=== PATIENT | male | born 1990 | race African-American/Black ===

== ENCOUNTER 2023-08-13 18:09 | Inpatient (IN) | payer BC ==
[2023-08-13 21:06] VITALS: BMI 26.6
[2023-08-13] MEDS ORDERED: BENZOCAINE/MENTHOL (CHLORASEPTIC ) LOZENGE MM PRN (23:47)
[2023-08-13] MEDS ORDERED: P-EPHED 60MG/TRIPROLIDI 2.5MG TABLET PO PRN (23:47)
[2023-08-13] MEDS ORDERED: IBUPROFEN 400 MG TABLET (FP) PO PRN (23:47)
[2023-08-13] MEDS ORDERED: LOPERAMIDE HCL 2 MG CAPSULE PO PRN (23:47)
[2023-08-13] MEDS ORDERED: BENZONATATE 200 MG CAPSULE PO PRN (23:47)
[2023-08-13] MEDS ORDERED: IBUPROFEN 600 MG TABLET (FP) PO PRN (23:47)
[2023-08-13] MEDS ORDERED: MAGNESIUM HYDROX 2400MG/30ML ORAL SUSPENSION 30 ML CUP PO PRN (23:47)
[2023-08-13] MEDS ORDERED: COLLOIDAL OATMEAL 1 BAR EACH TP PRN (23:47)
[2023-08-13] MEDS ORDERED: POLYETHYLENE GLYCOL (HEALTHYLAX) 3350 17 GM PACKET PO PRN (23:47)
[2023-08-13] MEDS ORDERED: guaiFENesin 600 MG TABLET.ER (FP) PO PRN (23:47)
[2023-08-14] MEDS: MELATONIN 5 MG TABLETS PO SCH ×2 (01:20→21:13)
[2023-08-14] MEDS: PRENATAL VITAMINS W/ FOLIC ACID TABLET (FP) PO SCH (10:00)
[2023-08-14] MEDS ORDERED: TUBERCULIN PPD 5 TU/0.1ML SYRINGE (IN PATIENT USE ONLY) ID ONE (12:00)
[2023-08-14 12:06] LABS: CHLORIDE 109 mmol/L (98-107); SODIUM 139 mmol/L (136-145)
[2023-08-14 12:09] LABS: HEMATOCRIT 45.4 % (35.4-49); HEMOGLOBIN 14.5 GM/dL (11.7-16.9); MCH 28.5 pg (25.7-33.7); MEAN CELL VOLUME 89.2 fl (80-96); PLATELET COUNT 235 10^3/uL (134-434); RBC 5.09 M/mm3 (4.00-5.60); RDW 14.5 % (11.9-15.9); WHITE BLOOD COUNT 7.6 K/mm3 (4.0-10.0)
[2023-08-14 12:10] LABS: ALBUMIN 3.7 g/dl (3.4-5.0); ANION GAP 6 mmol/L (4-13); BLOOD UREA NITROGEN 12.5 mg/dL (7-18); CO2 25 mmol/L (21-32); GLUCOSE,RANDOM 110 mg/dL (74-106)
[2023-08-14 12:13] LABS: SGOT/AST 13 U/L (15-37); SGPT/ALT 16 U/L (13-61)
[2023-08-14 12:14] LABS: TOT PROT 6.8 g/dl (6.4-8.2)
[2023-08-14 12:16] LABS: ALK PHOS 80 U/L (45-117)
[2023-08-14 12:16] LABS: PH,URINE 5.5 (5.0-8.0); URINE APPEARANCE CLEAR; URINE BILIRUBIN NEGATIVE (NEGATIVE); URINE COLOR YELLOW; URINE GLUCOSE (UA) NEGATIVE (NEGATIVE); URINE KETONE TRACE (NEGATIVE); URINE LEUK ESTERASE NEGATIVE (NEGATIVE); URINE NITRITE NEGATIVE (NEGATIVE); URINE PROTEIN TRACE (NEGATIVE); URINE UROBILINOGEN 0.2 mg/dL (0.2-1.0)
[2023-08-14] MEDS: MAG HYDROX/AL HYDROX/SIMETH 30 ML UNIT-DOSE CUP PO PRN (14:54)
[2023-08-14] MEDS: THIAMINE HCL 100 MG TABLET (FP) PO SCH (21:13)
[2023-08-15] MEDS: MAG HYDROX/AL HYDROX/SIMETH 30 ML UNIT-DOSE CUP PO PRN (06:21)
[2023-08-15] MEDS: PRENATAL VITAMINS W/ FOLIC ACID TABLET (FP) PO SCH (09:28)
[2023-08-15] MEDS: THIAMINE HCL 100 MG TABLET (FP) PO SCH (21:19)
[2023-08-15] MEDS: MELATONIN 5 MG TABLETS PO SCH (21:19)
[2023-08-16] MEDS: PRENATAL VITAMINS W/ FOLIC ACID TABLET (FP) PO SCH (09:34)
[2023-08-16 11:52] LABS: SYPHILIS W/ RPR CONF NON-REACTIVE (NONREACTIVE)
[2023-08-16] MEDS: THIAMINE HCL 100 MG TABLET (FP) PO SCH (21:19)
[2023-08-16] MEDS: MELATONIN 5 MG TABLETS PO SCH (21:19)
[2023-08-17] MEDS: ACETAMINOPHEN 325 MG TABLET (FP) PO PRN ×2 (02:00→23:49)
[2023-08-17] MEDS: PRENATAL VITAMINS W/ FOLIC ACID TABLET (FP) PO SCH (09:35)
[2023-08-17] MEDS: THIAMINE HCL 100 MG TABLET (FP) PO SCH (21:43)
[2023-08-17] MEDS: MELATONIN 5 MG TABLETS PO SCH (21:43)
[2023-08-18] MEDS: ACETAMINOPHEN 325 MG TABLET (FP) PO PRN (09:03)
[2023-08-18] MEDS: PRENATAL VITAMINS W/ FOLIC ACID TABLET (FP) PO SCH (09:03)
[2023-08-18] MEDS: THIAMINE HCL 100 MG TABLET (FP) PO SCH (21:07)
[2023-08-18] MEDS: MELATONIN 5 MG TABLETS PO SCH (21:07)
[2023-08-18] MEDS: LITHIUM CARBONATE 300 MG CAPSULE PO SCH (21:31)
[2023-08-19] MEDS: PRENATAL VITAMINS W/ FOLIC ACID TABLET (FP) PO SCH (09:14)
[2023-08-19] MEDS: LITHIUM CARBONATE 300 MG CAPSULE PO SCH ×2 (09:14→21:22)
[2023-08-19] MEDS: THIAMINE HCL 100 MG TABLET (FP) PO SCH (21:22)
[2023-08-19] MEDS: MELATONIN 5 MG TABLETS PO SCH (21:22)
[2023-08-20] MEDS: ACETAMINOPHEN 325 MG TABLET (FP) PO PRN ×2 (01:04→19:05)
[2023-08-20 07:05] VITALS: BP 129/81; PULSE 65; RESP 18; TEMP 98.3
[2023-08-20] MEDS: LITHIUM CARBONATE 300 MG CAPSULE PO SCH ×2 (10:03→21:17)
[2023-08-20] MEDS: PRENATAL VITAMINS W/ FOLIC ACID TABLET (FP) PO SCH (10:04)
[2023-08-20 14:21] LABS: BASO % 0.3 % (0-2.0); EOS % 0.8 % (0-4.5); HEMATOCRIT 47.5 % (35.4-49); HEMOGLOBIN 15.7 GM/dL (11.7-16.9); LYMPH % 23.9 % (8-40); MCH 29.3 pg (25.7-33.7); MCHC 33.1 g/dl (32.0-35.9); MEAN CELL VOLUME 88.7 fl (80-96); MEAN PLT VOLUME 9.2 fl (7.5-11.1); MONO % 12.3 % (3.8-10.2); NEUT % 62.7 % (42.8-82.8); PLATELET COUNT 236 10^3/uL (134-434); RBC 5.36 M/mm3 (4.00-5.60); RDW 14.1 % (11.9-15.9); WHITE BLOOD COUNT 7.8 K/mm3 (4.0-10.0)
[2023-08-20] MEDS: THIAMINE HCL 100 MG TABLET (FP) PO SCH (21:17)
[2023-08-20] MEDS: MELATONIN 5 MG TABLETS PO SCH (21:17)
== END 2023-08-20 22:05 | disposition short-term general hospital (02) | DRG 772 ==
LOC: YASAS 18:09 → Y3E 22:49
PROVIDERS: ADMIT Allergy & Immunology; ATTEND Psychiatry & Neurology Pain Medicine
PROC: HZ42ZZZ Group Counseling for Substance Abuse Treatment, Cognitive-Behavioral (ICD-10-PCS; principal; 2023-08-13)
DX: F12.20 Cannabis dependence, uncomplicated (principal); F18.288 Inhalant dependence with other inhalant-induced disorder; F17.210 Nicotine dependence, cigarettes, uncomplicated; F31.9 Bipolar disorder, unspecified; F25.0 Schizoaffective disorder, bipolar type; I10 Essential (primary) hypertension; E11.9 Type 2 diabetes mellitus without complications; Z79.84 Long term (current) use of oral hypoglycemic drugs
CPT/HCPCS: 36415; 80053; 80178; 80307; 81003; 82962; 85025; 85027; 86780; 86803; 87635